=== PATIENT | male | born 1985 | race African-American/Black ===

== ENCOUNTER 2019-01-19 11:09 | Emergency (ER) | payer SELFPAY ==
[~2019-01-19] VITALS: Ht 152.4 cm; Wt 90.9 kg
[2019-01-19 11:16] VITALS: Ht 152.4 cm; Wt 90.9 kg
[2019-01-19 11:55] LABS: HEMATOCRIT 43.1 % (42.0-54.0); LYMPHOCYTES 19.9 % (15-50); MCHC 32.5 g/dL (31.0-37.0); MCV 80.1 fL (80.0-100.0); MEAN PLATELET VOLUME 9.7 fL (7.4-10.4); NEUTROPHILS 71.8 % (40-80); PLATELET COUNT 179 10x3/uL (130-400); RBC 5.38 10x6/uL (4.20-6.10); RDW 13.8 % (11.5-14.5)
[2019-01-19 12:02] LABS: CALC OSMOLALITY 278 mosm/kg (275-300); CALCIUM 9.1 mg/dL (8.5-10.1); CARBON DIOXIDE 29.1 mmol/L (21.0-32.0); CHLORIDE - SERUM 103 mmol/L (98-107); CREATININE - SERUM 0.9 mg/dL (0.6-1.3); GLUCOSE 102 mg/dL (74-106); SODIUM 141 mmol/L (136-145); UREA NITROGEN 6 mg/dL (7-18); eGFR NON AFRICAN AMERICAN > 90 mL/min (90-120)
[2019-01-19 12:08] LABS: ALBUMIN 4.4 g/dL (3.4-5.0); ALKALINE PHOSPHATASE 91 U/L (46-116); ALT (SGPT) 29 U/L (10-68); AMYLASE - SERUM 45 U/L (25-115); BILIRUBIN - TOTAL 0.48 mg/dL (0.2-1.3); LIPASE 69 U/L (73-393)
[2019-01-19] MEDS ORDERED: MIRALAX17 GM PO (12:21)
[2019-01-19 12:43] VITALS: BP 120/83
== END 2019-01-19 13:10 | disposition home or self-care (01) ==
LOC: D.ER 11:09
PROVIDERS: Family Medicine
DX: K59.00 Constipation, unspecified (principal); R10.11 Right upper quadrant pain; R11.2 Nausea with vomiting, unspecified

== ENCOUNTER 2020-09-07 20:16 | Emergency (ER) | payer SELFPAY ==
[~2020-09-07] VITALS: Ht 152.4 cm; Wt 84.5 kg
[~2020-09-07 20:16] MED LIST: MIRALAX17 GM PO
[2020-09-07 20:28] VITALS: BP 118/84; Ht 152.4 cm; Wt 84.5 kg
[2020-09-07] MEDS ORDERED: ALBUTEROL SULF8.5 GM INH (20:53)
[2020-09-07 21:33] LABS: INFLUENZA TYPE A NEGATIVE (NEGATIVE); INFLUENZA TYPE B NEGATIVE (NEGATIVE); SARS-CoV-2 ANTIGEN NEGATIVE- SARS-COV-2 (NEGATIVE)
== END 2020-09-07 21:33 | disposition home or self-care (01) ==
LOC: D.ER 20:16
PROVIDERS: Family Medicine
DX: Z20.822 Contact with and (suspected) exposure to COVID-19 (principal); J06.9 Acute upper respiratory infection, unspecified